=== PATIENT | female | born 2000 | race American Indian/Alaskan Native ===

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

== ENCOUNTER 2018-01-22 08:26 | Emergency (ER) | payer MEDICAID ==
--- NOTE | 2018-01-22 09:23 | Emergency Department Report ---
ED General Adult HPI - General Chief complaint: Headache Stated complaint: SEVERE HEADACHE FOR 3 DAYS FOLLOWING CONCUSSION Time Seen by Provider: 01/22/18 09:12 Source: patient Mode of arrival: Ambulatory Limitations: No Limitations - History of Present Illness Initial comments: pt states she had concussion on wednesday, with severe H/A and loc. Pt states on she had a sudden severe h/a, that has persited till today. -: Sudden Location: head Radiation: non-radiation Severity scale (0 -10): 7 Quality: constant Associated Symptoms: denies other symptoms. denies: shortness of breath, syncope Treatments Prior to Arrival: none - Related Data Previous Rx's Medication Instructions Recorded Last Taken Type Ibuprofen [Motrin] 800 mg PO Q8HR #15 tablet 02/26/17 Unknown Rx Allergies Allergy/AdvReac Type Severity Reaction Status Date / Time No Known Allergies Allergy Verified 01/22/18 08:38 ED Review of Systems ROS: Stated complaint: SEVERE HEADACHE FOR 3 DAYS FOLLOWING CONCUSSION Other details as noted in HPI Constitutional: denies: chills, fever Eyes: denies: eye pain, eye discharge, vision change ENT: denies: ear pain, throat pain Respiratory: denies: cough, shortness of breath, wheezing Cardiovascular: denies: chest pain, palpitations Endocrine: no symptoms reported Gastrointestinal: nausea (occasional). denies: abdominal pain, diarrhea Genitourinary: denies: urgency, dysuria, discharge Musculoskeletal: denies: back pain, joint swelling, arthralgia Skin: denies: rash, lesions Neurological: as per HPI, headache. denies: weakness, paresthesias Psychiatric: denies: anxiety, depression Hematological/Lymphatic: denies: easy bleeding, easy bruising ED Past Medical Hx - Past Medical History Previous Medical History?: No Hx Hypertension: No Hx Diabetes: No Hx Deep Vein Thrombosis: No Hx of Cancer: No Hx Headaches / Migraines: No Hx Seizures: No Hx Psychiatric Treatment: No - Surgical History Past Surgical History?: No - Social History Smoking Status: Never Smoker Substance Use Type: None - Medications Home Medications: Home Medications Medication Instructions Recorded Confirmed Last Taken Type Ibuprofen [Motrin] 800 mg PO Q8HR #15 tablet 02/26/17 Unknown Rx ED Physical Exam - General Limitations: No Limitations General appearance: alert, in no apparent distress - Head Head exam: Present: atraumatic, normocephalic, normal inspection - Eye Eye exam: Present: normal appearance, PERRL, EOMI - ENT ENT exam: Present: normal orophraynx, mucous membranes moist - Neck Neck exam: Present: normal inspection, full ROM, other (NO NECK PAIN OR C SPINE TENDERESS, ALL SENSORY DERMATOMES INTACT, 5/5 POTLINE MONITOR BL WITH NO PRONATOR DRIFT). Absent: tenderness, meningismus, lymphadenopathy, thyromegaly - Respiratory Respiratory exam: Present: normal lung sounds bilaterally, other (NO CHEST WALL TENDERENESS, NO CP OR SOB ). Absent: respiratory distress - Cardiovascular Cardiovascular Exam: Present: regular rate, normal rhythm. Absent: systolic murmur, diastolic murmur, rubs, gallop - GI/Abdominal GI/Abdominal exam: Present: soft, normal bowel sounds, other (NO R OR LEFT UPPER Q TENDERNESS, NO LEFT SHOULDER PAIN ) - Extremities Exam Extremities exam: Present: normal inspection - Back Exam Back exam: Present: normal inspection - Neurological Exam Neurological exam: Present: alert, altered, oriented X3, CN II-XII intact, normal gait, other (no neglect, no ptosis, no maruc robyn pupils nih=0). Absent : abnormal gait, motor sensory deficit - Psychiatric Psychiatric exam: Present: normal affect, normal mood - Skin Skin exam: Present: warm, dry, intact, normal color. Absent: rash ED Course Vital Signs 01/22/18 08:38 Temperature 96.8 F L Pulse Rate 80 Respiratory 20 Rate Blood Pressure 105/71 O2 Sat by Pulse 98 Oximetry ED Medical Decision Making - Lab Data Result diagrams: 01/22/18 11:06 01/22/18 11:06 - Radiology Data Radiology results: report reviewed (neg ct head) - Medical Decision Making MIPS- WHY WAS A CT OF THE HEAD ORDERED? PT HAD HEAD INJURY WITH " CONCUSSION" SHE REPORTS. THEN 48 HOURS LATER, PT STATES H/A RETURNED VERY SEVERE WITH NAUSEA AND DIZZINESS. PT STATED SHE HAD LOC WITH HEAD INJURY. LABS AND UA WERE NORMAL TODAY PT HAS NORMAL SPEECH AND GAIT, W/O NEGLECT, PERRLA, EOMS -I NORMAL GAZE WITHOURT NEGLECT, 5/5 POTLINE MONITOR BL WITH NO PRONATOR DRIFT, ALL SENSORY DERMATOMES INATACT GCS 15 NIH=0 NO NECK PAIN OR C SPINE TENDERNESS. Critical Care Time: No Critical care attestation.: If time is entered above; I have spent that time in minutes in the direct care of this critically ill patient, excluding procedure time. ED Disposition Clinical Impression: Head ache Qualifiers: Headache type: post-traumatic Headache chronicity pattern: unspecified pattern Intractability: not intractable Qualified Code(s): G44.309 - Post-traumatic headache, unspecified, not intractable Disposition: DC-01 TO HOME OR SELFCARE Is pt being admited?: No Does the pt Need Aspirin: No Condition: Stable Instructions: Concussion (ED), Minor Head Injury (ED) Additional Instructions: TAKE PRECAUTIONS FOR CONCUSSION. DONT PLAY SPORTS, DONT CONCENTRATE OR STUDY OR READ, OR USE YOUR COMPUTER OR CELL PHONE. RELAX IN A DARK ROOM. ARRANGE A PROMPT EVALUATION WITH A NEUROLOGIST. CALL [phone] IF YOU FAINT OR HAVE VISUAL DISTURBANCES OR FEEL WEAK OR SICK. Referrals: PRIMARY CARE, [Primary Care Provider] - 3-5 Days Time of Disposition: 12:21
[2018-01-22] MEDS ORDERED: ZOFRAN ODT PO ONE (10:36)
[2018-01-22] MEDS ORDERED: TYLENOL PO ONE (10:36)
[2018-01-22 11:17] LABS: Bilirubin,Urine NEG (Negative); Blood,Urine NEG (Negative); Color,Urine Yellow (Yellow); Protein,Urine <15 mg/dL mg/dL (Negative); Urobilinogen,Urine < 2.0 mg/dL (<2.0)
[2018-01-22 11:20] LABS: HCG Qualitative,Urine Negative (Negative)
[2018-01-22 11:33] LABS: Basophils % (Auto) 0.6 % (0.0-1.8); Eosinophils # (Auto) 0.1 K/mm3 (0.0-0.4); Eosinophils % (Auto) 0.9 % (0.0-4.3); Hematocrit 35.2 % (30.3-42.9); Hemoglobin 11.4 gm/dl (10.1-14.3); Lymphocytes # (Auto) 2.4 K/mm3 (1.2-5.4); Mean Corpuscular HGB Conc 33 % (30-34); Mean Corpuscular Volume 79 fl (79-97); Monocytes # (Auto) 0.3 K/mm3 (0.0-0.8); Monocytes % (Auto) 3.9 % (0.0-7.3); Platelet Count 258 K/mm3 (140-440); Red Blood Count 4.46 M/mm3 (3.65-5.03); Red Cell Distribution Width 16.8 % (13.2-15.2)
[2018-01-22 11:40] LABS: Mean Corpuscular Hemoglobin 26 pg (28-32)
[2018-01-22 11:48] LABS: BUN/Creatinine Ratio 10; Blood Urea Nitrogen 5 mg/dL (7-17); Calcium 9.4 mg/dL (8.4-10.2)
[2018-01-22 11:49] LABS: Alanine Aminotransferase 6 units/L (7-56); Albumin 4.5 g/dL (3.9-5); Hemolysis Index 8
--- NOTE | 2018-01-22 12:03 | Cat Scan Report ---
CT scan of head without IV contrast: History: Severe headache, post concussion with LOC. Findings: Ventricles are normal in size and midline in location. No evidence for acute ischemia, hemorrhage or mass. No extra axial fluid collection. Normal brainstem and cerebellum. Normal visualized sinuses and mastoid air cells. Impression: Essentially negative CT scan of head.
[2018-01-22 12:37] VITALS: BP 112/82
== END 2018-01-22 12:38 | disposition home or self-care (01) ==
LOC: ED 08:26
DX: G44.309 Post-traumatic headache, unspecified, not intractable (principal)
CPT/HCPCS: 36415; 70450; 80053; 81001; 81025; 85025; Q0162

== ENCOUNTER 2018-12-28 13:27 | Emergency (ER) | payer OTHER ==
--- NOTE | 2018-12-28 13:57 | Emergency Department Report ---
Chief Complaint: Abdominal Pain Stated Complaint: TOOTHACHE/SWOLLEN (L) SIDE OF FACE/CHEST PAIN Time Seen by Provider: 12/28/18 13:54 - HPI History of Present Illness: pt presents with left sided dental pain pt has been to the dentist Dr. Bernal and states that the dentist "told her to come to the ER" no fever pt also presents with N/V right sided abd pain no diarrhea she denies being sexually active no PMHx MSE screening note: Focused history and physical exam performed. Due to findings the following was ordered: UA, labs ED Disposition for MSE Condition: Stable Instructions: Abdominal Pain (ED)
[2018-12-28 15:00] LABS: Basophils % (Auto) 0.3 % (0.0-1.8); Eosinophils % (Auto) 0.5 % (0.0-4.3); Hematocrit 39.8 % (30.3-42.9); Hemoglobin 13.5 gm/dl (10.1-14.3); Lymphocytes # (Auto) 1.9 K/mm3 (1.2-5.4); Lymphocytes % (Auto) 30.7 % (13.4-35.0); Mean Corpuscular HGB Conc 34 % (30-34); Mean Corpuscular Volume 85 fl (79-97); Monocytes # (Auto) 0.2 K/mm3 (0.0-0.8); Monocytes % (Auto) 3.6 % (0.0-7.3); Platelet Count 219 K/mm3 (140-440); Red Cell Distribution Width 14.1 % (13.2-15.2)
[2018-12-28] MEDS ORDERED: TYLENOL PO ONE (15:16)
[2018-12-28] MEDS ORDERED: ZOFRAN ODT PO ONE (15:16)
[2018-12-28] MEDS ORDERED: CLEOCIN PO ONE (15:16)
[2018-12-28 15:21] LABS: Albumin 4.9 g/dL (3.9-5); BUN/Creatinine Ratio 14; Blood Urea Nitrogen 7 mg/dL (7-17); Calcium 9.7 mg/dL (8.4-10.2); Hemolysis Index 6
--- NOTE | 2018-12-28 15:23 | Emergency Department Report ---
ED General Adult HPI - General Chief complaint: Abdominal Pain Stated complaint: TOOTHACHE/SWOLLEN (L) SIDE OF FACE/CHEST PAIN Time Seen by Provider: 12/28/18 13:54 Source: patient Mode of arrival: Ambulatory Limitations: No Limitations - History of Present Illness Initial comments: Patient is a 18-year-old female who is presenting with left- sided tooth pain. Patient has pain to tooth #18 for the past 2-3 days. Patient also states that for the past several days she's had some upper abdominal discomfort. Patient states she's been taking Motrin on an empty stomach. She states she is has nausea vomiting 3. Patient is able to keep water down. Patient states the pain is throbbing and aching as a 6 out of 10 in severity. Severity scale (0 -10): 0 - Related Data Previous Rx's Medication Instructions Recorded Last Taken Type Ibuprofen [Motrin] 800 mg PO Q8HR #15 tablet 02/26/17 Unknown Rx Clindamycin [Clindamycin CAP] 300 mg PO Q8H #21 cap 12/28/18 Unknown Rx HYDROcodone/ACETAMINOPHEN 1 each PO Q6HR PRN #10 tablet 12/28/18 Unknown Rx [Hydrocodone-Acetamin 5-325 mg] Ondansetron [Zofran Odt] 4 mg PO Q8HR #10 tab.rapdis 12/28/18 Unknown Rx Allergies Allergy/AdvReac Type Severity Reaction Status Date / Time No Known Allergies Allergy Verified 01/22/18 08:38 ED Review of Systems ROS: Stated complaint: TOOTHACHE/SWOLLEN (L) SIDE OF FACE/CHEST PAIN Other details as noted in HPI Comment: All other systems reviewed and negative ED Past Medical Hx - Past Medical History Previous Medical History?: No Hx Hypertension: No Hx Diabetes: No Hx Deep Vein Thrombosis: No Hx Headaches / Migraines: No Hx Seizures: No Hx Psychiatric Treatment: No - Surgical History Past Surgical History?: No - Social History Smoking Status: Never Smoker Substance Use Type: None - Medications Home Medications: Home Medications Medication Instructions Recorded Confirmed Last Taken Type Ibuprofen [Motrin] 800 mg PO Q8HR #15 tablet 02/26/17 Unknown Rx Clindamycin [Clindamycin CAP] 300 mg PO Q8H #21 cap 12/28/18 Unknown Rx HYDROcodone/ACETAMINOPHEN 1 each PO Q6HR PRN #10 tablet 12/28/18 Unknown Rx [Hydrocodone-Acetamin 5-325 mg] Ondansetron [Zofran Odt] 4 mg PO Q8HR #10 tab.rapdis 12/28/18 Unknown Rx ED Physical Exam - General Limitations: No Limitations General appearance: alert, in no apparent distress - Head Head exam: Present: atraumatic, normocephalic - Eye Eye exam: Present: normal appearance - ENT ENT exam: Present: mucous membranes moist - Expanded ENT Exam Expanded 1 - Dental Tenderness - Neck Neck exam: Present: normal inspection - Respiratory Respiratory exam: Present: normal lung sounds bilaterally. Absent: respiratory distress, wheezes, rales - Cardiovascular Cardiovascular Exam: Present: regular rate, normal rhythm. Absent: systolic murmur, diastolic murmur, rubs, gallop - GI/Abdominal GI/Abdominal exam: Present: soft, normal bowel sounds. Absent: distended, tenderness, guarding, rebound - Extremities Exam Extremities exam: Present: normal inspection - Back Exam Back exam: Present: normal inspection - Neurological Exam Neurological exam: Present: alert, oriented X3 - Psychiatric Psychiatric exam: Present: normal affect, normal mood - Skin Skin exam: Present: warm, dry, intact, normal color. Absent: rash ED Course Vital Signs 12/28/18 13:59 Temperature 98 F Pulse Rate 78 Respiratory 18 Rate Blood Pressure 110/80 O2 Sat by Pulse 100 Oximetry ED Medical Decision Making - Lab Data Result diagrams: 12/28/18 14:17 - Medical Decision Making Patient cautioned to not take Motrin on an empty stomach. This likely is the cause of patient's nausea and epigastric discomfort. Patient to be started on antibiotics for tooth abscess and patient was given prescription pain management. Critical care attestation.: If time is entered above; I have spent that time in minutes in the direct care of this critically ill patient, excluding procedure time. ED Disposition Clinical Impression: Dental abscess Gastritis Qualifiers: Gastritis type: unspecified gastritis Chronicity: acute Gastritis bleeding: without bleeding Qualified Code(s): K29.00 - Acute gastritis without bleeding Disposition: TO HOME OR SELFCARE Is pt being admited?: No Does the pt Need Aspirin: No Condition: Stable Instructions: Dental Abscess (ED), Gastritis (ED) Time of Disposition: 15:23
[2018-12-28 15:27] LABS: Alanine Aminotransferase < 5 units/L (7-56)
[2018-12-28 15:30] LABS: Bacteria,Urine 1+ /HPF (Negative); Bilirubin,Urine NEG (Negative); Blood,Urine SM (Negative); Color,Urine Yellow (Yellow); Protein,Urine <15 mg/dL mg/dL (Negative); Urobilinogen,Urine < 2.0 mg/dL (<2.0)
[2018-12-28 15:36] VITALS: BP 106/74
== END 2018-12-28 15:35 | disposition home or self-care (01) ==
LOC: ED 13:27
DX: K04.7 Periapical abscess without sinus (principal); K29.00 Acute gastritis without bleeding
CPT/HCPCS: 36415; 80053; 81001; 85025; 99283; Q0162

== ENCOUNTER 2020-06-08 03:09 | Emergency (ER) | payer SELFPAY ==
[2020-06-08] MEDS ORDERED: IPRATROPIUM 0.02% NEBU 2.5 ML IH ONE ×2 (03:49→03:55)
[2020-06-08] MEDS ORDERED: ALBUTEROL 2.5 MG/3 ML NEBU IH ONE ×2 (03:49→03:55)
--- NOTE | 2020-06-08 04:26 | XRay Report ---
CHEST 2 VIEWS INDICATION: cough. COMPARISON: None. FINDINGS: Support devices: None. Heart: Within normal limits. Lungs/Pleura: No acute air space or interstitial disease. No significant pleural effusion. IMPRESSION: No acute findings. Signer Name: Devin Hoover MD Signed: 06/08/2020 4:22 AM Workstation Name: [id number]
[2020-06-08] MEDS ORDERED: predniSONE 20 MG TAB PO ONE (07:23)
--- NOTE | 2020-06-08 07:28 | Emergency Department Report ---
ED Asthma HPI - General Chief Complaint: Adult Asthma Stated Complaint: CHEST PAIN Time Seen by Provider: 06/08/20 07:16 Source: patient Mode of arrival: Ambulatory Limitations: No Limitations - History of Present Illness Initial Comments: Patient is a 20-year-old female presents emergency room with complaints of chest tightness that began around 12 AM. She has associated cough and shortness of breath. She states that she mostly gets the symptoms at night. She denies any nausea, vomiting, diarrhea, fever, ear pain. She denies any sick contacts or recent travel. She denies any recent surgery, immobilization, hormone use. She has a new recent diagnosis of asthma and states that she uses an albuterol inhaler and Advair. She states that she does believe she has an allergy to the Advair as when she takes it she gets hives. She has not taken the Advair inhaler recently and denies any rash or itching or throat closing or facial swelling currently. She denies any other known allergies. - Related Data Home Medications Medication Instructions Recorded Confirmed Last Taken Advair Diskus 250-50 mcg 1 puff IH BID 06/08/20 06/08/20 Unknown Albuterol Sulfate [Proventil Hfa] 2 puff IH Q4H PRN 06/08/20 06/08/20 06/07/20 14:00 Previous Rx's Medication Instructions Recorded Last Taken Type Benzonatate [Tessalon Perles] 100 mg PO Q8HR PRN #14 capsule 06/08/20 Unknown Rx Loratadine [Claritin] 10 mg PO DAILY #30 tablet 06/08/20 Unknown Rx Prednisone [predniSONE 10 mg 10 mg PO .TAPER #1 tab.ds.pk 06/08/20 Unknown Rx (6-Day Pack, 21 Tabs)] Allergies Allergy/AdvReac Type Severity Reaction Status Date / Time fluticasone Allergy Hives Verified 06/08/20 07:34 [From Advair Diskus] salmeterol Allergy Hives Verified 06/08/20 07:34 [From Advair Diskus] ED Review of Systems ROS: Stated complaint: CHEST PAIN Other details as noted in HPI Comment: All other systems reviewed and negative ED Past Medical Hx - Past Medical History Previous Medical History?: Yes Hx Hypertension: No Hx Diabetes: No Hx Deep Vein Thrombosis: No Hx Headaches / Migraines: No Hx Seizures: No Hx Psychiatric Treatment: No Hx Asthma: Yes - Surgical History Past Surgical History?: No - Social History Smoking Status: Never Smoker Substance Use Type: None - Medications Home Medications: Home Medications Medication Instructions Recorded Confirmed Last Taken Type Advair Diskus 250-50 mcg 1 puff IH BID 06/08/20 06/08/20 Unknown History Albuterol Sulfate [Proventil Hfa] 2 puff IH Q4H PRN 06/08/20 06/08/20 06/07/20 14:00 History Benzonatate [Tessalon Perles] 100 mg PO Q8HR PRN #14 capsule 06/08/20 Unknown Rx Loratadine [Claritin] 10 mg PO DAILY #30 tablet 06/08/20 Unknown Rx Prednisone [predniSONE 10 mg 10 mg PO .TAPER #1 tab.ds.pk 06/08/20 Unknown Rx (6-Day Pack, 21 Tabs)] ED Physical Exam - General Limitations: No Limitations General appearance: alert, in no apparent distress - Head Head exam: Present: atraumatic, normocephalic - Eye Eye exam: Present: normal appearance - ENT ENT exam: Present: normal orophraynx, mucous membranes moist, TM's normal bilaterally, normal external ear exam, other (no angioedema, no tongue edema, uvula is midline, no uvular edema or deviation, pale boggy turbinates) - Respiratory Respiratory exam: Present: normal lung sounds bilaterally. Absent: respiratory distress, wheezes, rales, rhonchi, stridor, chest wall tenderness, accessory muscle use, decreased breath sounds, prolonged expiratory - Cardiovascular Cardiovascular Exam: Present: regular rate, normal rhythm, normal heart sounds. Absent: systolic murmur, diastolic murmur, rubs, gallop - Neurological Exam Neurological exam: Present: alert, oriented X3 - Psychiatric Psychiatric exam: Present: normal affect, normal mood - Skin Skin exam: Present: warm, dry, intact. Absent: rash ED Course Vital Signs 06/08/20 06/08/20 03:26 03:56 Temperature 98.1 F Pulse Rate 71 Pulse Rate [ 88 Bilateral Throughout] Respiratory 16 Rate Respiratory 18 Rate [Bilateral Throughout] Blood Pressure 114/59 O2 Sat by Pulse 97 Oximetry ED Medical Decision Making - Radiology Data Radiology results: report reviewed CHEST 2 VIEWS INDICATION: cough. COMPARISON: None. FINDINGS: Support devices: None. Heart: Within normal limits. Lungs/Pleura: No acute air space or interstitial disease. No significant pleural effusion. IMPRESSION: No acute findings. Signer Name: Devin Hoover MD Signed: 06/08/2020 4:22 AM Workstation Name: [id number] Transcribed By: ROJAS Dictated By: Devin Hoover MD Electronically Authenticated By: Devin Hoover MD Signed Date/Time: 06/08/20421 DD/ 0 TD/TT: - Medical Decision Making Patient is a 20-year-old female presents emergency room with complaints of chest tightness that began around 12 AM. She has associated cough and shortness of breath. She states that she mostly gets the symptoms at night. She denies any nausea, vomiting, diarrhea, fever, ear pain. She denies any sick contacts or recent travel. She denies any recent surgery, immobilization, hormone use. She has a new recent diagnosis of asthma and states that she uses an albuterol inhaler and Advair. She states that she does believe she has an allergy to the Advair as when she takes it she gets hives. She has not taken the Advair inhaler recently and denies any rash or itching or throat closing or facial sw elling currently. She denies any other known allergies. Vitals are normal. Advised nurse to update patient's chart to include Advair as an allergic reaction. Patient was given nebulizer treatment prior to my examination. On my examination breath sounds are completely clear, there is no wheezing, no rales, no rhonchi, no stridor, no respiratory distress, no accessory muscle use. CXR ordered prior to my examination and shows: Support devices: None. Heart: Within normal limits. Lungs/Pleura: No acute air space or interstitial disease. No significant pleural effusion. IMPRESSION: No acute findings. Patient also has pale boggy turbinates on exam most consistent with allergic rhinitis which is often seen in conjunction with asthmatic patients. she has no clinical signs of bacterial PNA. Patient given oral prednisone. Patient states that she is feeling much better and ready to go home and she is symptom-free. Patient given prescription for Claritin, prednisone, Tessalon Perles. Advised patient Please take medication as prescribed. Please continue to use your albuterol inhaler every 4 hours as needed for shortness of breath or wheezing. Please stop using your Advair inhaler and follow-up with your primary care doctor regarding your reaction to Advair. Please follow-up with your primary care doctor for reexamination. Return to the emergency room immediately for any new or worsening symptoms. - Differential Diagnosis URI, PNA, asthma, reactive airway, bronchitis, allergic rhinitis, allergies Critical care attestation.: If time is entered above; I have spent that time in minutes in the direct care of this critically ill patient, excluding procedure time. ED Disposition Clinical Impression: Asthma exacerbation Qualifiers: Asthma severity: unspecified severity Asthma persistence: unspecified Qualified Code(s): J45.901 - Unspecified asthma with (acute) exacerbation Allergic rhinitis Qualifiers: Allergic rhinitis trigger: unspecified Allergic rhinitis seasonality: unspecified Qualified Code(s): J30.9 - Allergic rhinitis, unspecified Disposition: - TO HOME OR SELFCARE Is pt being admited?: No Does the pt Need Aspirin: No Condition: Stable Instructions: Asthma (ED), Allergic Rhinitis (ED) Additional Instructions: Please take medication as prescribed. Please continue to use your albuterol inhaler every 4 hours as needed for shortness of breath or wheezing. Please stop using your Advair inhaler and follow-up with your primary care doctor regarding your reaction to Advair. Please follow-up with your primary care doctor for reexamination. Return to the emergency room immediately for any new or worsening symptoms. Prescriptions: Loratadine [Claritin] 10 mg PO DAILY #30 tablet Prednisone [predniSONE 10 mg (6-Day Pack, 21 Tabs)] 10 mg PO .TAPER #1 tab.ds.pk Benzonatate [Tessalon Perles] 100 mg PO Q8HR PRN #14 capsule PRN Reason: cough Referrals: PHUC VÁSQUEZGODWIN MD TAYE [Primary Care Provider] - 2-3 Days Time of Disposition: 07:26 Print Language: TANZANIAN
[2020-06-08] MEDS ORDERED: diphenhydrAMINE 25 MG CAP PO ONE ×2 (07:59)
[2020-06-08] MEDS ORDERED: ONDANSETRON 4 MG/2 ML INJ IV ONE (08:16)
[2020-06-08] MEDS ORDERED: diphenhydrAMINE 50 MG/ML VIAL IV ONE (08:16)
[2020-06-08 11:40] VITALS: BP 123/58
== END 2020-06-08 11:35 | disposition home or self-care (01) ==
LOC: ED 03:09
DX: J45.901 Unspecified asthma with (acute) exacerbation (principal); Z79.899 Other long term (current) drug therapy; Z88.8 Allergy status to other drugs, medicaments and biological substances
CPT/HCPCS: 71046; 94640; 96374; 96375; 99284; J1200; J2405; J7512; 94644

== ENCOUNTER 2021-03-01 23:09 | Emergency (ER) | payer SELFPAY ==
[2021-03-02] MEDS ORDERED: IPRATROPIUM/ALBUTEROL SULFATE 3 ML AMPUL.NEB IH ONE (02:22)
[2021-03-02] MEDS ORDERED: predniSONE 20 MG TAB PO ONE (02:22)
--- NOTE | 2021-03-02 02:51 | XRay Report ---
CHEST 2 VIEWS INDICATION / CLINICAL INFORMATION: cough, chest tightness. COMPARISON: 06/08/2020 FINDINGS: SUPPORT DEVICES: None. HEART / MEDIASTINUM: No significant abnormality. LUNGS / PLEURA: No significant pulmonary or pleural abnormality. No pneumothorax. ADDITIONAL FINDINGS: No significant additional findings. IMPRESSION: 1. No acute findings. No interval change. Signer Name: Debi Urias MD Signed: 03/02/2021 2:47 AM Workstation Name: [id number]
--- NOTE | 2021-03-02 03:36 | Emergency Department Report ---
ED Asthma HPI - General Chief Complaint: Chest Pain Stated Complaint: CHEST TIGHTNESS UNDER LEFT ARM Time Seen by Provider: 03/02/21 02:03 Source: patient Mode of arrival: Ambulatory Limitations: No Limitations - History of Present Illness Initial Comments: Patient is a 20-year-old female presents emergency room complaints of an exacerbation of her asthma that began a few days ago. She has associated chest tightness, dry cough, occasional shortness of breath. She denies any fever, nausea, vomiting, diarrhea, sore throat, ear pain, abdominal pain, leg swelling. She states that she uses an inhaler for her asthma. She does not use nebulizer treatments at home. Past medical history of anemia. Allergy to Advair. Last menstrual cycle 02/17/2021. - Related Data Home Medications Medication Instructions Recorded Confirmed Last Taken Advair Diskus 250-50 mcg 1 puff IH BID 06/08/20 06/08/20 Unknown Previous Rx's Medication Instructions Recorded Last Taken Type Benzonatate [Tessalon Perles] 100 mg PO Q8HR PRN #14 capsule 06/08/20 Unknown Rx Albuterol Sulfate [Proventil Hfa] 2 puff IH TID PRN #1 03/02/21 Unknown Rx Loratadine [Claritin] 10 mg PO DAILY #30 tablet 03/02/21 Unknown Rx Prednisone [predniSONE 10 mg 10 mg PO .TAPER #1 tab.ds.pk 03/02/21 Unknown Rx (6-Day Pack, 21 Tabs)] Allergies Allergy/AdvReac Type Severity Reaction Status Date / Time fluticasone Allergy Hives Verified 06/08/20 08:01 [From Advair Diskus] salmeterol Allergy Hives Verified 06/08/20 08:01 [From Advair Diskus] ED Review of Systems ROS: Stated complaint: CHEST TIGHTNESS UNDER LEFT ARM Other details as noted in HPI Comment: All other systems reviewed and negative ED Past Medical Hx - Past Medical History Previous Medical History?: Yes Hx Hypertension: No Hx Diabetes: No Hx Deep Vein Thrombosis: No Hx Headaches / Migraines: No Hx Seizures: No Hx Psychiatric Treatment: No Hx Asthma: Yes - Surgical History Past Surgical History?: No - Social History Smoking Status: Never Smoker Substance Use Type: None - Medications Home Medications: Home Medications Medication Instructions Recorded Confirmed Last Taken Type Advair Diskus 250-50 mcg 1 puff IH BID 06/08/20 06/08/20 Unknown History Benzonatate [Tessalon Perles] 100 mg PO Q8HR PRN #14 capsule 06/08/20 Unknown Rx Albuterol Sulfate [Proventil Hfa] 2 puff IH TID PRN #1 03/02/21 Unknown Rx Loratadine [Claritin] 10 mg PO DAILY #30 tablet 03/02/21 Unknown Rx Prednisone [predniSONE 10 mg 10 mg PO .TAPER #1 tab.ds.pk 03/02/21 Unknown Rx (6-Day Pack, 21 Tabs)] ED Physical Exam - General Limitations: No Limitations General appearance: alert, in no apparent distress - Head Head exam: Present: atraumatic, normocephalic - Eye Eye exam: Present: normal appearance - ENT ENT exam: Present: mucous membranes moist - Respiratory Respiratory exam: Present: wheezes, decreased breath sounds. Absent: respiratory distress, rales, rhonchi, stridor, chest wall tenderness, accessory muscle use, prolonged expiratory - Cardiovascular Cardiovascular Exam: Present: regular rate, normal rhythm, normal heart sounds. Absent: systolic murmur, diastolic murmur, rubs, gallop - Neurological Exam Neurological exam: Present: alert, oriented X3 - Psychiatric Psychiatric exam: Present: normal affect, normal mood - Skin Skin exam: Present: warm, dry, intact ED Course Vital Signs 03/01/21 03/02/21 03/02/21 23:17 02:52 04:57 Temperature 98.4 F 98.6 F Pulse Rate 94 H 82 Pulse Rate [ 77 Anterior Throughout] Respiratory 14 20 Rate Respiratory 18 Rate [Anterior Throughout] Blood Pressure 128/72 Blood Pressure 111/68 [Left] O2 Sat by Pulse 81 L 100 Oximetry 03/02/21 05:01 Temperature Pulse Rate Pulse Rate [ Anterior Throughout] Respiratory 20 Rate Respiratory Rate [Anterior Throughout] Blood Pressure Blood Pressure [Left] O2 Sat by Pulse 99 Oximetry ED Medical Decision Making - Lab Data Vital Signs 03/01/21 03/02/21 03/02/21 23:17 02:52 04:57 Temperature 98.4 F 98.6 F Pulse Rate 94 H 82 Pulse Rate [ 77 Anterior Throughout] Respiratory 14 20 Rate Respiratory 18 Rate [Anterior Throughout] Blood Pressure 128/72 Blood Pressure 111/68 [Left] O2 Sat by Pulse 81 L 100 Oximetry 03/02/21 05:01 Temperature Pulse Rate Pulse Rate [ Anterior Throughout] Respiratory 20 Rate Respiratory Rate [Anterior Throughout] Blood Pressure Blood Pressure [Left] O2 Sat by Pulse 99 Oximetry - Radiology Data Radiology results: report reviewed Ordering Physician: TRAY ZUNIGA Date of Service: 03/02/21 Procedure(s): XR chest routine 2V Accession Number(s): [id number] cc: TRAY ZUNIGA Fluoro Time In Minutes: CHEST 2 VIEWS INDICATION / CLINICAL INFORMATION: cough, chest tightness. COMPARISON: 06/08/2020 FINDINGS: SUPPORT DEVICES: None. HEART / MEDIASTINUM: No significant abnormality. LUNGS / PLEURA: No significant pulmonary or pleural abnormality. No pneumothorax. ADDITIONAL FINDINGS: No significant additional findings. IMPRESSION: 1. No acute findings. No interval change. Signer Name: Debi Urias MD Signed: 03/02/2021 2:47 AM Workstation Name: [id number] Transcribed By: JR Dictated By: Debi Urias MD Electronically Authenticated By: Debi Urias MD Signed Date/Time: 03/02/21246 DD/ 5 TD/TT: Print - Medical Decision Making Patient is a 20-year-old female presents emergency room complaints of an exacerbation of her asthma that began a few days ago. She has associated chest tightness, dry cough, occasional shortness of breath. She denies any fever, nausea, vomiting, diarrhea, sore throat, ear pain, abdominal pain, leg swelling. She states that she uses an inhaler for her asthma. She does not use nebulizer treatments at home. Past medical history of anemia. Allergy to Advair. Last menstrual cycle 02/17/2021. Initial oxygen saturation was captured incorrectly in triage, and note was made by triage nurse. Patient's oxygen saturation is 100% on room air. On exam patient has wheezing and decreased air movement. Chest x-ray 1. No acute findings. No interval change. Patient given prednisone and nebulizer treatment. On reexamination wheezing has resolved and patient has good air movement. Patient has no clinical signs of bacterial pneumonia or bacterial bronchitis. Patient can prescription for medications. Advised patient Please take medication as prescribed. Follow-up with your primary care doctor. Return to emergency room for any new or worsening symptoms. Critical care attestation.: If time is entered above; I have spent that time in minutes in the direct care of this critically ill patient, excluding procedure time. ED Disposition Clinical Impression: Asthma Qualifiers: Asthma severity: unspecified severity Asthma persistence: unspecified Asthma complication type: with acute exacerbation Qualified Code(s): J45.901 - Unspecified asthma with (acute) exacerbation Disposition: TO HOME OR SELFCARE Is pt being admited?: No Does the pt Need Aspirin: No Condition: Stable Instructions: Asthma, Adult, Asthma (ED) Additional Instructions: Please take medication as prescribed. Follow-up with your primary care doctor. Return to emergency room for any new or worsening symptoms. Prescriptions: Loratadine [Claritin] 10 mg PO DAILY #30 tablet Prednisone [predniSONE 10 mg (6-Day Pack, 21 Tabs)] 10 mg PO .TAPER #1 tab.ds.pk Albuterol Sulfate [Proventil Hfa] 2 puff IH TID PRN #1 PRN Reason: shortness of breath/wheezing Referrals: PRIMARY CARE, [Primary Care Provider] - 2-3 Days Time of Disposition: 03:35 Print Language: AMERICAN
[2021-03-02 04:58] VITALS: BP 111/68
== END 2021-03-02 05:03 | disposition home or self-care (01) ==
LOC: ED 23:09
DX: J45.909 Unspecified asthma, uncomplicated (principal); Z98.890 Other specified postprocedural states; Z88.8 Allergy status to other drugs, medicaments and biological substances; Z79.899 Other long term (current) drug therapy
CPT/HCPCS: 71046; 94640; 99283; J7512; 94644

== ENCOUNTER 2021-04-24 18:26 | Emergency (ER) | payer SELFPAY ==
[2021-04-24 20:18] VITALS: BP 121/69
[2021-04-24 20:51] LABS: Hematocrit 37.7 % (30.3-42.9); Hemoglobin 12.4 gm/dl (10.1-14.3); Mean Corpuscular HGB Conc 33 % (30-34); Mean Corpuscular Volume 84 fl (79-97); Platelet Count 250 K/mm3 (140-440); Red Blood Count 4.51 M/mm3 (3.65-5.03); Red Cell Distribution Width 15.5 % (13.2-15.2)
[2021-04-24 21:10] LABS: Alanine Aminotransferase 7 units/L (7-56); Albumin 4.6 g/dL (3.9-5); Blood Urea Nitrogen 9 mg/dL (7-17); Calcium 9.6 mg/dL (8.4-10.2); Hemolysis Index 12
[2021-04-24 21:11] LABS: BUN/Creatinine Ratio 15
[2021-04-24 21:27] LABS: Bacteria,Urine 1+ /HPF (Negative); Bilirubin,Urine NEG (Negative); Blood,Urine NEG (Negative); Color,Urine Yellow (Yellow); Mucus,Urine FEW /HPF; Protein,Urine <15 mg/dL mg/dL (Negative); Urobilinogen,Urine < 2.0 mg/dL (<2.0)
--- NOTE | 2021-04-25 00:19 | Emergency Department Report ---
ED General Adult HPI - General Chief complaint: Dizziness Stated complaint: FAINTED Time Seen by Provider: 04/24/21 23:56 Source: patient Mode of arrival: Ambulatory Limitations: No Limitations - History of Present Illness Initial comments: 21-year-old female patient with history of asthma presents to the emergency department following a syncopal episode several hours earlier. Patient states she was getting off the bus when she passed out. Patient is unsure how long she was unconscious. Patient is able to recall sitting on the side of the road aft er passing out. Patient states she felt dizzy, lightheaded, diaphoretic, and nauseous for several minutes after the syncopal episode. These symptoms did not precede the syncope. Patient has experienced these symptoms on several prior occasions. She has never been evaluated by a medical provider for this recurrent issue. Patient does not use drugs or alcohol. Last menstrual cycle was April 14. No family history of syncope or sudden cardiac . Patient did not sustain any injuries as a result of the syncope. Currently, patient is asymptomatic. Denies headache, vision changes, seizure, chest pain, shortness of breath, palpitations, vomiting, diarrhea. Denies all other complaints at this time. Severity scale (0 -10): 0 - Related Data Home Medications Medication Instructions Recorded Confirmed Last Taken Advair Diskus 250-50 mcg 1 puff IH BID 06/08/20 06/08/20 Unknown Previous Rx's Medication Instructions Recorded Last Taken Type Benzonatate [Tessalon Perles] 100 mg PO Q8HR PRN #14 capsule 06/08/20 Unknown Rx Albuterol Sulfate [Proventil Hfa] 2 puff IH TID PRN #1 03/02/21 Unknown Rx Loratadine [Claritin] 10 mg PO DAILY #30 tablet 03/02/21 Unknown Rx Prednisone [predniSONE 10 mg 10 mg PO .TAPER #1 tab.ds.pk 03/02/21 Unknown Rx (6-Day Pack, 21 Tabs)] Allergies Allergy/AdvReac Type Severity Reaction Status Date / Time fluticasone Allergy Hives Verified 06/08/20 08:01 [From Advair Diskus] salmeterol Allergy Hives Verified 06/08/20 08:01 [From Advair Diskus] ED Review of Systems ROS: Stated complaint: FAINTED Other details as noted in HPI Other: GENERAL: Negative for fever, chills, weight change, anorexia, fatigue. ENT: Negative for ear pain, difficulty hearing, sore throat, nasal congestion, epistaxis. CARDIOVASCULAR: Negative for chest pain, palpitations, lower extremity swelling. PULMONARY: Negative for cough, dyspnea, wheezing, orthopnea, cyanosis. GASTROINTESTINAL: Positive for nausea. MUSCULOSKELETAL: Negative for joint pain, joint swelling, myalgias, back pain, neck pain. NEUROLOGICAL: Positive for syncope, dizziness, lightheadedness. INTEGUMENTARY: Positive for diaphoresis HEMATOLOGICAL: Negative for hemoptysis, hematemesis, hematochezia, hematuria. PSYCHIATRIC: Negative for hallucinations, suicidal ideation, homicidal ideation, anxiety, depression. ED Past Medical Hx - Past Medical History Previous Medical History?: Yes Hx Hypertension: No Hx Diabetes: No Hx Deep Vein Thrombosis: No Hx Headaches / Migraines: No Hx Seizures: No Hx Psychiatric Treatment: No Hx Asthma: Yes Additional medical history: Anemia - Surgical History Past Surgical History?: No - Social History Smoking Status: Never Smoker Substance Use Type: None - Medications Home Medications: Home Medications Medication Instructions Recorded Confirmed Last Taken Type Advair Diskus 250-50 mcg 1 puff IH BID 06/08/20 06/08/20 Unknown History Benzonatate [Tessalon Perles] 100 mg PO Q8HR PRN #14 capsule 06/08/20 Unknown Rx Albuterol Sulfate [Proventil Hfa] 2 puff IH TID PRN #1 03/02/21 Unknown Rx Loratadine [Claritin] 10 mg PO DAILY #30 tablet 03/02/21 Unknown Rx Prednisone [predniSONE 10 mg 10 mg PO .TAPER #1 tab.ds.pk 03/02/21 Unknown Rx (6-Day Pack, 21 Tabs)] ED Physical Exam - General Limitations: No Limitations - Other Other exam information: General: Awake and alert. No acute distress. Head: Atraumatic, normocephalic. Eyes: EOMI. Pupils are equal and round. Normal sclera and conjunctiva. ENT: Oral mucosa is moist. Normal pharyngeal exam. Neck: Supple. No lymphadenopathy. Pulmonary: No respiratory distress. Clear to auscultation bilaterally. Cardiac: Regular rate and rhythm. Pulses are palpable and equal bilaterally. No lower extremity cyanosis or edema. Skin: Warm and dry. No rashes. Abdomen: Soft, non-tender, non-protuberant. No guarding, rigidity, or rebound. Bowel sounds are normal. No organomegaly or masses noted. Back: Normal alignment. No CVA tenderness. Extremities: Symmetrical. Full range of motion intact. Neurological: Alert and oriented, appropriately interactive, no focal deficits. Psych: Cooperative. Appropriate mood and affect. Speech is evenly metered. Thoughts are logically construed. ED Course Vital Signs 04/24/21 20:17 Temperature 99.4 F Pulse Rate 82 Respiratory 20 Rate Blood Pressure 121/69 [Right] O2 Sat by Pulse 100 Oximetry ED Medical Decision Making - Lab Data Result diagrams: 04/24/21 20:37 04/24/21 20:37 - EKG Data 04/25/21 01:08 EKG shows sinus bradycardia with a ventricular rate of 58 bpm. Normal axis. Normal IL interval. Normal QT interval. Good R wave progression. No ST segment changes. Over read by attending emergency physician, who agrees with this interpretation. - Medical Decision Making Differential diagnosis including but not limited to: cardiac arrhythmia, Brugada syndrome, WPW, -related complication, dehydration Patient presents to the emergency department several hours after syncopal episode. Currently, patient is asymptomatic. She has experienced similar syncopal episodes on prior occasions. She has never been evaluated by a digital composer. Vital signs are stable. test is negative. Labs ordered by licensed weigher prior to MSE are unremarkable. Neurological exam is nonfocal. Cardiopulmonary exam is unremarkable. EKG without evidence of arrhythmia. No clinical indication for further diagnostic work-up on an emergent basis at this time per ACEP guidelines. Patient will be discharged home with referral to cardiology for close outpatient follow-up. Patient expressed understanding and is agreeable to plan of care. Strict return precautions provided. Repeat exam is unremarkable and benign. History, exam, diagnostic testing, and current condition do not suggest worrisome pathology to warrant further testing, continued ED treatment, admission, or surgical evaluation at this point. Given the low probability of a significant medical illness, it would be more likely to result in harm than benefit to perform further testing at this stage. Discussed findings, presumptive diagnosis, need for follow-up and specific signs/symptoms that should prompt immediate return to the emergency department. Instructions were explained in detail to the patient in addition to giving written discharge information. Patient expressed understanding and was given the opportunity to ask questions, all of which were satisfactorily answered prior to discharge home.. Critical care attestation.: If time is entered above; I have spent that time in minutes in the direct care of this critically ill patient, excluding procedure time. ED Disposition Clinical Impression: Recurrent syncope Disposition: TO HOME OR SELFCARE Is pt being admited?: No Does the pt Need Aspirin: No Condition: Stable Instructions: Syncope, [id number] Additional Instructions: Continue medications as previously prescribed. Rest. Drink plenty of fluids. Avoid drugs, alcohol, and excessive caffeine intake. You must follow-up with a digital composer for further evaluation of recurrent symptoms. Call tomorrow to schedule an appointment. See referral information below. Please refrain from sports and other physical activity until otherwise cleared by digital composer. Return to the emergency department immediately for new or worsening symptoms. Specifically, return to the emergency department immediately for chest pain, difficulty breathing, dehydration, headache, palpitations, or any other concerns. [facility] - 3-5 Days Time of Disposition: 01:15
--- NOTE | 2021-04-25 17:58 | Electrocardiograph Report ---
[facility] Test Date: 2021-04-25 Test Time: 01:02:41 Pat Name: FLORES SOUZA Department: Room: Gender: F Autotransfusionist: DONTA : 2000 Requested By: PERCY TRAN Order Number: [id number] Reading MD: Lyndon Mcdaniel Measurements Intervals [place] Rate: 58 P: 66 TX: 132 QRS: 34 QRSD: 75 T: 31 QT: 451 QTc: 441 Interpretive Statements Sinus bradycardia Probable left atrial enlargement No previous ECG available for comparison Electronically Signed On 04-25-2021 17:58:15 EDT by Lyndon Mcdaniel
== END 2021-04-25 01:27 | disposition home or self-care (01) ==
LOC: ED 18:26
DX: R55 Syncope and collapse (principal); R42 Dizziness and giddiness; R11.0 Nausea; J45.909 Unspecified asthma, uncomplicated
CPT/HCPCS: 36415; 80053; 81001; 84703; 85027; 93005; 99283

== ENCOUNTER 2022-04-05 19:47 | Emergency (ER) | payer MEDICAID ==
[2022-04-05 21:52] LABS: Hematocrit 34.7 % (30.3-42.9); Hemoglobin 10.9 gm/dl (10.1-14.3)
--- NOTE | 2022-04-06 02:15 | Cat Scan Report ---
CT head without contrast INDICATION : syncope. TECHNIQUE: Axial imaging performed from the skull apex through the skull base without the use of con trast. All CT scans at this location are performed using CT dose reduction for ALARA by means of aut omated exposure control. COMPARISON: None FINDINGS: Parenchyma: No mass, stroke or hemorrhage. Ventricles: Ventricles are normal in size and appear symmetric. Soft tissues: Soft tissues including the orbits appear normal. Bones: No acute osseous abnormality. Sinuses: Sinuses and mastoid air cells are clear. IMPRESSION: No acute abnormality. Signer Name: Devin Hoover MD Signed: 04/06/2022 2:10 AM Workstation Name: [id number]
[2022-04-06 02:18] LABS: Basophils % (Auto) 0.5 % (0.0-1.8); Eosinophils # (Auto) 0.2 K/mm3 (0.0-0.4); Eosinophils % (Auto) 3.6 % (0.0-4.3); Hematocrit 31.9 % (30.3-42.9); Hemoglobin 10.4 gm/dl (10.1-14.3); Lymphocytes # (Auto) 2.9 K/mm3 (1.2-5.4); Lymphocytes % (Auto) 42.8 % (13.4-35.0); Mean Corpuscular HGB Conc 33 % (30-34); Mean Corpuscular Volume 84 fl (79-97); Monocytes # (Auto) 0.3 K/mm3 (0.0-0.8); Monocytes % (Auto) 5.1 % (0.0-7.3); Platelet Count 221 K/mm3 (140-440); Red Blood Count 3.78 M/mm3 (3.65-5.03); Red Cell Distribution Width 14.8 % (13.2-15.2)
[2022-04-06 02:47] LABS: Alanine Aminotransferase 6 units/L (7-56); Albumin 4.3 g/dL (3.9-5); Blood Urea Nitrogen 4 mg/dL (7-17); Calcium 9.1 mg/dL (8.4-10.2); Hemolysis Index 8
[2022-04-06 02:58] LABS: BUN/Creatinine Ratio 7
--- NOTE | 2022-04-06 04:56 | Emergency Department Report ---
ED GI Bleed HPI - General Chief complaint: GI Bleed Stated complaint: RECTAL BLEEDING/DIARRHEA POSS OD LAST WEEK Source: patient Mode of arrival: Ambulatory Limitations: No Limitations - History of Present Illness Initial comments: Patient is a nulliparous 21-year-old -[place] female with a history of anxiety, depression and asthma who presents to the ED with complaint of acute onset persistent intermittent diarrhea and hematochezia for the last 1 week. Patient states that she has also had 3 episodes of syncope in the last 1 week. Patient admits to having overdosed on Tylenol over 1 week ago and was hospitalized at another facility and is currently scheduled for a follow-up with a psychiatrist and a mental health counselor. Patient however denies at this time suicidal ideation, homicidal ideation, nausea and vomiting, diarrhea, dysuria, urinary frequency and urgency, vaginal discharge, low back pain, fever, chills, abdominal pain, cough, sore throat, headache, lightheadedness, dizziness, syncope or seizures. MD complaint: blood on toilet paper, blood streaked stool, other (Diarrhea; syncopal episodes) -: Gradual, week(s) (1) Location: diffuse Radiation: none Severity scale (0 -10): 1 Quality: dull Consistency: intermittent Improves with: none Worsens with: bowel movement Context: hemorrhoids, near syncope Associated Symptoms: denies other symptoms, loss of appetite, malaise, syncope, weakness. denies: abdominal pain, nausea, vomiting, epistaxis, fever/chills, headaches, easy bruising, rash, other bleeding, shortness of breath, other - Related Data Home Medications Medication Instructions Recorded Confirmed Last Taken Advair Diskus 250-50 mcg 1 puff IH BID 06/08/20 06/08/20 Unknown Previous Rx's Medication Instructions Recorded Last Taken Type Benzonatate [Tessalon Perles] 100 mg PO Q8HR PRN #14 capsule 06/08/20 Unknown Rx Albuterol Sulfate [Proventil Hfa] 2 puff IH TID PRN #1 03/02/21 Unknown Rx Loratadine [Claritin] 10 mg PO DAILY #30 tablet 03/02/21 Unknown Rx Prednisone [predniSONE 10 mg 10 mg PO .TAPER #1 tab.ds.pk 03/02/21 Unknown Rx (6-Day Pack, 21 Tabs)] Allergies Allergy/AdvReac Type Severity Reaction Status Date / Time fluticasone Allergy Hives Verified 06/08/20 08:01 [From Advair Diskus] salmeterol Allergy Hives Verified 06/08/20 08:01 [From Advair Diskus] ED Review of Systems ROS: Stated complaint: RECTAL BLEEDING/DIARRHEA POSS OD LAST WEEK Other details as noted in HPI Constitutional: denies: chills, fever Eyes: denies: eye pain, eye discharge, vision change ENT: denies: ear pain, throat pain Respiratory: denies: cough, shortness of breath, wheezing Cardiovascular: denies: chest pain, palpitations Endocrine: no symptoms reported Gastrointestinal: abdominal pain (mild lower abdominal), nausea, hematochezia. denies: vomiting, diarrhea Genitourinary: denies: urgency, dysuria, frequency, hematuria, discharge, abnormal menses, dyspareunia Musculoskeletal: denies: back pain, joint swelling, arthralgia Skin: denies: rash, lesions Neurological: denies: headache, weakness, paresthesias Psychiatric: denies: anxiety, depression Hematological/Lymphatic: denies: easy bleeding, easy bruising ED Past Medical Hx - Past Medical History Hx Hypertension: No Hx Diabetes: No Hx Deep Vein Thrombosis: No Hx Headaches / Migraines: No Hx Seizures: No Hx Psychiatric Treatment: Yes (anxiety, depression with SI/HI) Hx Asthma: Yes Additional medical history: Anemia, Tylenol overdose - Social History Smoking Status: Never Smoker - Medications Home Medications: Home Medications Medication Instructions Recorded Confirmed Last Taken Type Advair Diskus 250-50 mcg 1 puff IH BID 06/08/20 06/08/20 Unknown History Benzonatate [Tessalon Perles] 100 mg PO Q8HR PRN #14 capsule 06/08/20 Unknown Rx Albuterol Sulfate [Proventil Hfa] 2 puff IH TID PRN #1 03/02/21 Unknown Rx Loratadine [Claritin] 10 mg PO DAILY #30 tablet 03/02/21 Unknown Rx Prednisone [predniSONE 10 mg 10 mg PO .TAPER #1 tab.ds.pk 03/02/21 Unknown Rx (6-Day Pack, 21 Tabs)] ED Physical Exam - General Limitations: No Limitations General appearance: alert, in no apparent distress - Head Head exam: Present: atraumatic, normocephalic, normal inspection - Eye Eye exam: Present: normal appearance, PERRL, EOMI Pupils: Present: normal accommodation - ENT ENT exam: Present: normal exam, normal orophraynx, mucous membranes moist, TM's normal bilaterally, normal external ear exam - Neck Neck exam: Present: normal inspection, full ROM - Respiratory Respiratory exam: Present: normal lung sounds bilaterally. Absent: respiratory distress, wheezes, rales, rhonchi, chest wall tenderness, accessory muscle use, decreased breath sounds, prolonged expiratory - Cardiovascular Cardiovascular Exam: Present: regular rate, normal rhythm, normal heart sounds. Absent: systolic murmur, diastolic murmur, rubs, gallop - GI/Abdominal GI/Abdominal exam: Present: soft, normal bowel sounds. Absent: tenderness, guarding, rebound, hyperactive bowel sounds, hypoactive bowel sounds, organomegaly - Extremities Exam Extremities exam: Present: normal inspection, full ROM, normal capillary refill. Absent: tenderness, pedal edema, joint swelling, calf tenderness - Back Exam Back exam: Present: normal inspection, full ROM. Absent: tenderness, CVA tenderness (R), CVA tenderness (L), muscle spasm, paraspinal tenderness, vertebral tenderness - Neurological Exam Neurological exam: Present: alert, oriented X3, CN II-XII intact, normal gait, reflexes normal - Psychiatric Psychiatric exam: Present: normal affect, normal mood - Skin Skin exam: Present: warm, dry, intact, normal color. Absent: rash ED Course Vital Signs 04/05/22 20:30 Temperature 98.9 F Pulse Rate 85 Respiratory 16 Rate Blood Pressure 106/86 Blood Pressure 106/86 [Right] O2 Sat by Pulse 100 Oximetry ED Medical Decision Making - Lab Data Result diagrams: 04/06/22 01:48 04/06/22 01:48 - EKG Data EKG shows normal: sinus rhythm Rate: bradycardia - EKG Data Interpretation: normal EKG 04/06/22 05:49 EKG shows sinus bradycardia with a ventricular rate of [address] or T wave abnormalities. - Radiology Data Radiology results: report reviewed, image reviewed [facility] [address] [place] [address] Cat Scan Report Signed Patient: FLORES SOUZA MR#: [id number] : 2000 Acct:[id number] Age/Sex: 21 / F ADM Date: 04/05/22 Loc: ED Attending Dr: Ordering Physician: TRAY RODRIGUEZ Date of Service: 04/06/22 Procedure(s): CT head/brain wo con Accession Number(s): [id number] cc: TRAY RODRIGUEZ CT head without contrast INDICATION : syncope. TECHNIQUE: Axial imaging performed from the skull apex through the skull base without the use of contrast. All CT scans at this location are performed using CT dose reduction for ALARA by means of automated exposure control. COMPARISON: None FINDINGS: Parenchyma: No mass, stroke or hemorrhage. Ventricles: Ventricles are normal in size and appear symmetric. Soft tissues: Soft tissues including the orbits appear normal. Bones: No acute osseous abnormality. Sinuses: Sinuses and mastoid air cells are clear. IMPRESSION: No acute abnormality. Signer Name: Devin Hoover MD Signed: 04/06/2022 2:10 AM Workstation Name: [id number] Transcribed By: ES Dictated By: Devin Hoover MD Electronically Authenticated By: Devin Hoover MD Signed Date/Time: 04/06/22209 DD/ 6 TD/TT: - Medical Decision Making This is a nulliparous 21-year-old -[place] female with a history of anxiety, depression and asthma who presents to the ED with complaint of acute onset persistent intermittent diarrhea and hematochezia for the last 1 week. Patient states that she has also had 3 episodes of syncope in the last 1 week. Patient admits to having overdosed on Tylenol over 1 week ago and was hospitalized at another facility and is currently scheduled for a follow-up with a psychiatrist and a mental health counselor. In the ED, patient is alert and oriented x3 and is not in any distress. Patient is hemodynamically stable. Lab test results were reviewed and are all nonactionable. EKG shows sinus bradycardia with a ventricular rate of 58 beats a minute and no ST or T wave abnormalities. The head CT scan without contrast showed no acute intracranial abnormalities or hemorrhage. All lab test results were reviewed and are all nonactionable including hemoglobin and hematocrit which are all normal. Patient was discharged home and given a referral to the GI physician Dr. Celestine Blanton for further evaluation with colonoscopy. Patient was advised to contact Dr. Celestine Blanton's office first thing in the morning to schedule follow-up appointment. Patient was advised to return to the ED immediately if symptoms get worse. - Differential Diagnosis GI bleed; anemia; dehydration; hemorrhoids; ACS; anxiety Critical care attestation.: If time is entered above; I have spent that time in minutes in the direct care of this critically ill patient, excluding procedure time. ED Disposition Clinical Impression: Syncope and collapse, Anxiety as acute reaction to exceptional stress GIB (gastrointestinal bleeding) Qualifiers: GI bleed type/associated pathology: unspecified gastrointestinal hemorrhage type Qualified Code(s): K92.2 - Gastrointestinal hemorrhage, unspecified Disposition: 01 HOME / SELF CARE / HOMELESS Is pt being admited?: No Does the pt Need Aspirin: No Condition: Stable Instructions: Gastrointestinal Bleeding, [id number], Syncope (ED), Syncope, [id number], Near-Syncope, [id number], Generalized Anxiety Disorder, Adult Additional Instructions: All lab test results are unremarkable. There is no sign of anemia as a cause of your persistent syncope. The head CT scan without contrast showed no acute intracranial abnormalities or hemorrhage. Therefore follow-up with the GI phy sician Dr. Celestine Blanton for further evaluation with colonoscopy to rule out any life-threatening conditions as the cause of your rectal bleeding. Contact Dr. Celestine Blanton's office to schedule a follow-up appointment. Follow-up with your primary care physician in 7 to 10 days for reevaluation. Return to the ED immediately if symptoms get worse. Referrals: CELESTINE BLANTON MD [Staff Physician] - 3-5 Days NATALIIA DONG MD [Primary Care Provider] - 7-10 days Forms: Accompanied Note Time of Disposition: 05:03 Print Language: HUNGARIAN
[2022-04-06 05:18] LABS: Bilirubin,Urine NEG (Negative); Blood,Urine NEG (Negative); Color,Urine Straw (Yellow); Protein,Urine <15 mg/dL mg/dL (Negative); Urobilinogen,Urine < 2.0 mg/dL (<2.0)
[2022-04-06 05:20] LABS: Bacteria,Urine 1+ /HPF (Negative); Mucus,Urine FEW /HPF
[2022-04-06 06:16] VITALS: BP 123/74
--- NOTE | 2022-04-07 08:28 | Electrocardiograph Report ---
[facility] Test Date: 2022-04-06 Test Time: 02:39:52 Pat Name: FLORES SOUZA Department: Room: Gender: F Binder Layer: DIA : 2000 Requested By: NINA RAMIREZ Order Number: [id number] Reading MD: Rob Galeano Measurements Intervals [place] Rate: 58 P: 68 MD: 125 QRS: 48 QRSD: 81 T: 37 QT: 436 QTc: 430 Interpretive Statements Sinus rhythm Compared to ECG 04/25/2021 01:02:41 Sinus bradycardia no longer present Electronically Signed On 04-07-2022 8:27:44 EDT by Rob Galeano
== END 2022-04-06 06:16 | disposition home or self-care (01) ==
LOC: ED 19:47
DX: R55 Syncope and collapse (principal); F41.1 Generalized anxiety disorder; F43.0 Acute stress reaction; K92.2 Gastrointestinal hemorrhage, unspecified; G43.909 Migraine, unspecified, not intractable, without status migrainosus; Z91.09 Other allergy status, other than to drugs and biological substances; Z79.899 Other long term (current) drug therapy
CPT/HCPCS: 36415; 70450; 80053; 81001; 84484; 84703; 85014; 85018; 85025; 93005; 99284